=== PATIENT | male | born 1990 | race Caucasian/White ===

== ENCOUNTER 2017-09-15 12:48 | Emergency (ER) | payer OTHER ==
[~2017-09-15] VITALS: Ht 182.9 cm; Wt 145.4 kg
[2017-09-15] MEDS ORDERED: DIVA500T52 PO (13:50)
[2017-09-15] MEDS ORDERED: BUPR-47 PO (13:51)
[2017-09-15] MEDS ORDERED: TRAZ-144 PO (13:51)
[2017-09-15] MEDS ORDERED: LORazepam 1 MG TABLET PO ONE (16:45)
[2017-09-15 16:57] VITALS: BP 138/82
== END 2017-09-15 17:29 | disposition home or self-care (01) ==
LOC: EMS 12:52
DX: F31.9 Bipolar disorder, unspecified (principal); Z76.0 Encounter for issue of repeat prescription; F12.90 Cannabis use, unspecified, uncomplicated
CPT/HCPCS: 99284

== ENCOUNTER 2020-11-10 08:00 | Emergency (ER) | payer OTHER ==
[~2020-11-10] VITALS: Ht 185.4 cm; Wt 104.5 kg
[~2020-11-10 08:00] MED LIST: BUPR-49 PO; DIVA-80 PO; TRAZ-252 PO
[2020-11-10 08:02] VITALS: BP 154/99
[2020-11-10] MEDS ORDERED: BUPR-93 PO (08:11)
[2020-11-10] MEDS ORDERED: ALBU8HFA IH (08:11)
[2020-11-10] MEDS ORDERED: LITH600C5 PO ×2 (08:11)
[2020-11-10] MEDS ORDERED: KETOROLAC TROMETHAMINE 30 MG/ML VIAL IM ONE (08:45)
== END 2020-11-10 09:08 | disposition home or self-care (01) ==
LOC: EMS 08:04
DX: M54.42 Lumbago with sciatica, left side (principal); G89.29 Other chronic pain; J45.909 Unspecified asthma, uncomplicated; F31.9 Bipolar disorder, unspecified
CPT/HCPCS: 96372; 99283; J1885